=== PATIENT | female | born 1965 | race Caucasian/White ===

== ENCOUNTER 2020-10-25 10:06 | Observation (INO) | payer BC ==
[~2020-10-25] VITALS: Ht 154.9 cm; Wt 74.0 kg
[2020-10-25] VITALS (12 sets, daily range): BP systolic 107–149; BP diastolic 50–94; PULSE 49–65; TEMP 97.4–97.6
[2020-10-25] MEDS ORDERED: NORCO 325 MG-7.1 TAB PO (10:39)
[2020-10-25] MEDS ORDERED: SYNTHROID0.1 MG/TAB PO (10:39)
[2020-10-25] MEDS ORDERED: VITAMIN D (ERGOCALCI PO (10:39)
--- NOTE | 2020-10-25 10:55 | NUR ---
IV started by Eric Oleary SOCIAL WELFARE ADMINISTRATOR #20g right calf. Patient states that is the only place to start the IV.
--- NOTE | 2020-10-25 12:20 | NUR ---
Dr Allen into see patient at this time to go over results.
--- NOTE | 2020-10-25 12:45 | NUR ---
Dr Allen reports that patient can have clear liquids until two hours post-op (1602) and then advance as tolerated.
--- NOTE | 2020-10-25 13:30 | NUR ---
Patient given muffin at this time. Vitals stable.
--- NOTE | 2020-10-25 14:15 | NUR ---
Patient complains of severe right upper quadrant pain. Denies nausea/vomiting. Vitals stable. Dr Allen contacted and would like to continue monitoring patient.
--- NOTE | 2020-10-25 14:30 | NUR ---
Patient complaining of 10/10 right lateral upper abdominal pain. Patient does appear to be in pain. Vitals stable. Dr Allen contacted and order obtain for PRN pain medication.
--- NOTE | 2020-10-25 14:40 | NUR ---
Lab into see patient at this time.
[2020-10-25 15:03] LABS: ALBUMIN 4.2 gm/dL (3.5-5.0); BILIRUBIN,TOTAL 0.9 mg/dL (0.0-1.0); CALCIUM 8.5 mg/dL (8.4-10.2); CREATININE, serum 0.43 (0.52-1.25); POTASSIUM 3.9 mmol/L (3.4-5.0); TOTAL PROTEIN 7.6 gm/dL (6.4-8.2)
--- NOTE | 2020-10-25 15:20 | NUR ---
Dr Means contacted/updated with lab results. Patient asleep resting comfortably on chair.
--- NOTE | 2020-10-25 15:20 | NUR ---
Dr Allen contacted/updated with lab results. Patient asleep resting comfortably on chair.
--- NOTE | 2020-10-25 15:45 | NUR ---
Dr Allen contacted with lab result updates. Patient reports she doesn't feel confident in going home. Patient currently rates pain 2/10 in right upper quadrant abdomen.
--- NOTE | 2020-10-25 15:55 | NUR ---
labor gang supervisor reports patient will go to [id number].
--- NOTE | 2020-10-25 16:00 | NUR ---
Patient reports pain is starting to increase. Patient educated that she will be admitted to the floor shortly where the hospitalist navigation officer will see her and order PRN pain medications.
--- NOTE | 2020-10-25 16:20 | NUR ---
Patient report called to KP Tavares.
--- NOTE | 2020-10-25 16:30 | NUR ---
Patient transfered to [place] [id number] via wheelchair with IV intact and without any complications. Patient report and care given to KP Tavares.
--- NOTE | 2020-10-25 17:18 | NUR ---
PATIENT TO FLOOR, REPORT FROM HERMLEIGH. PATIENT C/O 9/10 PAIN IN MIDABDOMEN. PHYSICIAN NOTIFIED, ORDERS RECEIVED. FLUIDS INITIATED AND PAIN TREATED WITH CURRENT PAIN RATED AT 0/10. PATIENT ORIENTED TO ROOM AND CLEAR LIQUID DIET ORDERED. NO NEEDS OR C/O AT THIS TIME.
--- NOTE | 2020-10-25 17:40 | NUR ---
OBSERVED PT WALKING TO BATHROOM W/ IV POLE. PT STEADY ON HER FEET.
--- NOTE | 2020-10-25 18:32 | NUR ---
PATIENT RESTING W/O PAIN FOR SHORT TIME. SHE HAS EATEN CLEAR LIQUID DIET AND STATES SHE IS STARTING TO HAVE PAIN AGAIN RATING AT 3/10 - DECLINES PAIN INTERVENTION AT THIS TIME. NO OTHRE NEEDS OR C/O.
[2020-10-26 00:04] VITALS: BP 93/52; PULSE 57; TEMP 98.1
[2020-10-26 04:23] VITALS: BP 123/73; PULSE 50; TEMP 98.5
[2020-10-26 05:55] LABS: ALBUMIN 3.4 gm/dL (3.5-5.0); BILIRUBIN,TOTAL 0.9 mg/dL (0.0-1.0); CALCIUM 7.7 mg/dL (8.4-10.2); CREATININE, serum 0.42 (0.52-1.25); HEMOGLOBIN 12.3 g/dl (12.5-16.0); MAGNESIUM 1.8 mg/dL (1.6-2.3); MEAN CELL VOLUME 90 fl (80.0-100.0); MEAN CORPUSCULAR HEMOGLOBIN 32 pg (27.0-31.0); MEAN CORPUSCULAR HGB CONC 35 g/dl (33.0-37.0); PHOSPHOROUS 2.9 mg/dL (2.5-4.5); RED BLOOD COUNT 3.87 M/mm3 (4.10-5.30); REDCELL DISTRIBUTION WIDTH-CV 12.4 % (11.5-14.5); TOTAL PROTEIN 6.4 gm/dL (6.4-8.2)
[2020-10-26 06:01] LABS: HEMATOCRIT 34.7 % (37.0-47.0)
--- NOTE | 2020-10-26 06:24 | NUR ---
Resting quietly, patient ambulated to bathroom independently last night with steady gait, pain well controlled with Elliott 7.5, no further vomitting or nasuea complaints, requesting to eat this am. Updated on POC- verbalized understanding.
[2020-10-26 06:32] LABS: BAND 1 % (0-10); LYMPHOCYTE 82 % (20.0-51.0); NEUTROPHILS 15 % (42.0-75.2); PLATELET ESTIMATE DECREASED (NORMAL)
[2020-10-26 06:33] LABS: ANISOCYTOSIS 1+; POIKILOCYTOSIS 1+
--- NOTE | 2020-10-26 07:08 | NUR ---
PT UP TO SIDE OF BED, INDEPENDENT IN ROOM, C/O WAKING UP HOURLY IN NIGHT FOR BATHROOM OR LAB DRAW. PT REPORTS PAIN AT A 5/10 CURRENTLY AND DENIES NEED FOR PAIN MEDS AT THIS TIME. PT PLEASANT, ASSESSMENT PERFORMED, NO OTHER NEEDS.
[2020-10-26 07:46] VITALS: BP 112/58; PULSE 56; TEMP 98.3
[2020-10-26 12:10] VITALS: BP 128/71; PULSE 60; TEMP 98.2
--- NOTE | 2020-10-26 13:17 | NUR ---
Plan is to return home with support from Dtr Quyen Marie . Patient reports that she is indpendent and works constently. Patient indicated that her PCP is Marshall Finn. Patient prefers [facility] on [address] in [place]. Patient reports that she has transport home. Patient denies the use of any DME. Patient denies having any care concerns or use for skilled services. SW could not identify any additional concerns. Will follow for needs. No DPOA
--- NOTE | 2020-10-26 16:04 | NUR ---
PT ESCORTED OUT VIA WHEELCHAIR WITH BELONGINGS, DISCHARGE EDUCATION PROVIDED, IV REMOVED.
== END 2020-10-26 15:00 | disposition home or self-care (01) ==
LOC: SDCO → MEDICAL 16:51
PROVIDERS: Internal Medicine Gastroenterology; ADMIT Family Medicine
DX: K91.89 Other postprocedural complications and disorders of digestive system (principal); K31.5 Obstruction of duodenum; K83.8 Other specified diseases of biliary tract; K31.89 Other diseases of stomach and duodenum; R93.2 Abnormal findings on diagnostic imaging of liver and biliary tract; R94.5 Abnormal results of liver function studies; K85.90 Acute pancreatitis without necrosis or infection, unspecified; J45.909 Unspecified asthma, uncomplicated; E03.9 Hypothyroidism, unspecified; D64.9 Anemia, unspecified; G89.29 Other chronic pain; B18.2 Chronic viral hepatitis C; Z87.891 Personal history of nicotine dependence; Z20.822 Contact with and (suspected) exposure to COVID-19; Z83.3 Family history of diabetes mellitus; Z79.890 Hormone replacement therapy
CPT/HCPCS: 99239; C1769; C9113; G0378; J1170; J2704; J3010; J7030; Q9967

== ENCOUNTER 2020-10-26 21:36 | Inpatient (IN) | payer BC ==
[~2020-10-26 21:36] MED LIST: NORCO 325 MG-7.1 TAB PO; SYNTHROID0.1 MG/TAB PO; VITAMIN D (ERGOCALCI PO
[2020-10-27] VITALS (7 sets, daily range): BP systolic 99–126; BP diastolic 55–68; PULSE 57–82; TEMP 98–98.9
--- NOTE | 2020-10-27 00:36 | NUR ---
aWAKE,alert, oriented x 3, verbal with clear speech, c/o abdominal pain, medicated per MAR, IV to R Andree melendrez here to see patient
[2020-10-27 06:37] LABS: HEMOGLOBIN 11.2 g/dl (12.5-16.0); MEAN CELL VOLUME 92 fl (80.0-100.0); MEAN CORPUSCULAR HEMOGLOBIN 31 pg (27.0-31.0); MEAN CORPUSCULAR HGB CONC 34 g/dl (33.0-37.0); MEAN PLATELET VOLUME 12.9 fl (7.4-10.4); PLATELET COUNT 122 K/mm3 (130-400); RED BLOOD COUNT 3.59 M/mm3 (4.10-5.30); REDCELL DISTRIBUTION WIDTH-CV 12.6 % (11.5-14.5)
[2020-10-27 06:39] LABS: ALBUMIN 3.2 gm/dL (3.5-5.0); BILIRUBIN,TOTAL 2.2 mg/dL (0.0-1.0); CALCIUM 7.3 mg/dL (8.4-10.2); CREATININE, serum 0.42 (0.52-1.25); TOTAL PROTEIN 6.2 gm/dL (6.4-8.2)
--- NOTE | 2020-10-27 08:15 | NUR ---
PT GRIMACING, ABD GUARDING PRESENT, REPORTING 9/10 ABD PAIN, DILAUDID GIVEN, TOO EARLY FOR NORCO, PT REPORTS WANTING NORCO AFTER A SHOWER AND AFTER DILAUDID TAKES EFFECT, PT DA BRINGING SUPPLIES FOR HER FROM HOME, OTHER MEDICATIONS GIVEN AND SIDE EFFECTS LISTED, PT DENIES NAUSEA, PT NPO AT THIS TIME, IV FLUIDS INFUSING, NO OTHER NEEDS AT THIS TIME.
[2020-10-27 08:33] LABS: BAND 1 % (0-10); EOSINOPHIL 2 % (0-4); LYMPHOCYTE 34 % (20.0-51.0); NEUTROPHILS 57 % (42.0-75.2)
[2020-10-27 08:40] LABS: PLATELET ESTIMATE NORMAL (NORMAL)
--- NOTE | 2020-10-27 12:11 | NUR ---
SW met with patient to complete intake. Patient states that she lives alone in [place], [place]. Patient states that her point of contact is her daughter Quyen [phone]. Completed documenation during intake for daughter to also be appointed as DPOA-HC. Documenation completed, reviewed, signed by patient and witnessed by nurse. Documenation was copied for patient and original placed in chart. Patient states that she does not utilize DME nor needs any assistance with ADL's. Patient provides that her PCP is Dr. Trivedi and pharmacy is [facility], and is able to afford her medications. Patient states her plan is to return back to her home [place] [address] and has no problems with doing so. Patient also states that she does not utilize any home health services at this time. SW will continue to follow.
--- NOTE | 2020-10-27 12:30 | NUR ---
PT C/O BLOOD IN STOOL AND ABD PAIN. STOOL VISUALIZED WITH BRIGHT RED BLOOD, PT DENIES DIZZINESS, VITALS TAKEN AND STABLE. DILAUDID GIVEN, JOSE NOTIFIED AND SAID TO DEFER TO JOSE RAFAEL. JOSE RAFAEL CALLED AND REPEAT H&H SCHEDULED FOR 1400. CONTINUE TO MONITOR BLOOD IN STOOL.
[2020-10-27 14:08] LABS: HEMATOCRIT 31.4 % (37.0-47.0); HEMOGLOBIN 10.8 g/dl (12.5-16.0)
--- NOTE | 2020-10-27 17:26 | NUR ---
PT HAD BLOODY STOOL EARLY IN AFTERNOON, NONE SINCE THEN, PT EDUCATED TO NOTIFY STAFF SO WE CAN VISUALIZE SPECIMEN. HGB STABLE, PT AOX4, REPORTS PAIN 4/10 AT THIS TIME, WANTS TO WAIT FOR MORE PAIN MEDS
--- NOTE | 2020-10-27 20:31 | NUR ---
Patient requesting something to eat, call placed to Andree Yin- NON: clear liquid diet- updated patient on plan of care.
--- NOTE | 2020-10-27 23:21 | NUR ---
Chuy teaching re: clear liquid diet, patient drinking chicken broth and water and jello, no distress noted, will continue to monitor.
[2020-10-28 04:07] VITALS: BP 131/67; PULSE 72; TEMP 99
[2020-10-28 06:50] LABS: BASO % 0.3 % (0.0-2.0); EOS # 0.1 (0.0-0.7); EOS % 2.3 % (0-4.0); GRAN # 3.9 (1.4-6.5); GRAN % 64.5 % (42.2-75.2); HEMOGLOBIN 11.2 g/dl (12.5-16.0); LYMPH # 1.6 (1.2-3.4); LYMPH % 26.1 % (20.0-51.0); MEAN CELL VOLUME 95 fl (80.0-100.0); MEAN CORPUSCULAR HEMOGLOBIN 32 pg (27.0-31.0); MEAN CORPUSCULAR HGB CONC 34 g/dl (33.0-37.0); MEAN PLATELET VOLUME 11.7 fl (7.4-10.4); MONO # 0.4 (0.1-0.6); MONO % 6.6 % (1.7-9.3); PLATELET COUNT 181 K/mm3 (130-400); RED BLOOD COUNT 3.53 M/mm3 (4.10-5.30); REDCELL DISTRIBUTION WIDTH-CV 12.8 % (11.5-14.5)
[2020-10-28 07:10] LABS: HEMATOCRIT 33.4 % (37.0-47.0)
[2020-10-28 08:00] LABS: ALBUMIN 3.4 gm/dL (3.5-5.0); BILIRUBIN,TOTAL 1.2 mg/dL (0.0-1.0); CALCIUM 7.6 mg/dL (8.4-10.2); CREATININE, serum 0.41 (0.52-1.25); POTASSIUM 3.6 mmol/L (3.4-5.0); TOTAL PROTEIN 6.4 gm/dL (6.4-8.2)
[2020-10-28 08:08] VITALS: BP 123/70; PULSE 66; TEMP 98.4
--- NOTE | 2020-10-28 08:21 | NUR ---
Patient asks for food, NPO order currently. Several drinks noted at bedside, removed from room. Patient agitated, states "They let me drink all I wanted last night". Educated patient on NPO status, will update Dr that patient requests diet order.
--- NOTE | 2020-10-28 10:28 | NUR ---
Patient alert and oriented, answers questions appropriately. See assessment. Abdomen soft, non distended, tender. Bowel sounds active x4 quads. +Flatus. Patient has flat affect, several complaints. Pain 9/10, no other c/o at this time.
[2020-10-28 11:40] VITALS: BP 127/78; PULSE 76; TEMP 98.1
--- NOTE | 2020-10-28 12:35 | NUR ---
First visit from the conductor/brakeman. No needs right now.
--- NOTE | 2020-10-28 15:30 | NUR ---
visited at length with patient regarding PICC placement. explained risks and benefits of PICC placement. patient doesn't want to sign a consent form for vascular access. requests to keep sticking her in her legs for IV site. explained more risks with PIV in leg when compared to PICC placement. still not wanting to sign a consent form. explained minimal risks of complications with PICC placement. still not willing to sign consent form. primary care nurse at bedside and reports request of no PICC and wants IV in leg.
[2020-10-28 16:36] VITALS: BP 127/72; PULSE 71; TEMP 98.5
--- NOTE | 2020-10-28 16:45 | NUR ---
Patient c/o rash to BLE, low back. Diffuse rash noted to thighs and low back. Dr Guzman notified.
--- NOTE | 2020-10-28 17:18 | NUR ---
Patient refused lab.
--- NOTE | 2020-10-28 18:23 | NUR ---
Patient refuses IV start to BUE, states last time someone tried, they "hit a nerve". Educated patient on need for IV and protocol is to start in upper extremeties vs lower, refuses.
[2020-10-28 19:48] VITALS: BP 109/56; PULSE 85; TEMP 99.9
--- NOTE | 2020-10-28 23:02 | NUR ---
Patient is awake, alert, oriented x 4, able to make all needs known, patient teaching re: bloody stools, labs, testing, PICC lines, IJ lines, PIVs, treatment plan, pain managment- verbalizes understanding, Andree Yin has seen patient and is aware of bloody stools, inablility to start PIV, inability of lab to get lab work, this nurse attempted x 2 to obtain PIV line, Charge nurse attempted x 3 to obtain PIV without sucess, patient tolerated well, Plan to get PICC tomorrow- patient agreeable, see new orders re: pain medications, paitent updated on plan of care by Andree Yin PA. Will continue to monitor.
[2020-10-29 00:18] VITALS: BP 96/48; PULSE 64; TEMP 98.1
--- NOTE | 2020-10-29 01:37 | NUR ---
Call placed to Andree Yin re: blood pressure trending downward, most recent , no further bloody bowel movements at this time, sleeping but wakes easily, call [facility]encia w/i reach, continuing ot monitor per Andree.
[2020-10-29 04:04] VITALS: BP 107/59; PULSE 63; TEMP 98.1
--- NOTE | 2020-10-29 06:15 | NUR ---
Chuy medicated for pain with good effect, B/P 107/59 this am, awake and alert, updated on plan of care- verbalized understanding. will continue to monitor.
[2020-10-29 07:24] VITALS: BP 119/78; PULSE 62; TEMP 98.1
--- NOTE | 2020-10-29 07:29 | NUR ---
PT PLEASANT, A0X4, ANXIOUS ABOUT PICC PLACEMENT TODAY, REPORTS PAIN 7/10 IN ABD, REPORTS HAVING 4 BLOODY STOOLS TODAY, ATTEMPTED TO CALL [facility] FOR PICC PLACEMENT BUT SHE IS NOT HERE YET.
[2020-10-29 09:33] LABS: BASO % 0.2 % (0.0-2.0); EOS # 0.2 (0.0-0.7); EOS % 4.7 % (0-4.0); GRAN # 2.6 (1.4-6.5); GRAN % 56.4 % (42.2-75.2); HEMOGLOBIN 10.1 g/dl (12.5-16.0); LYMPH # 1.4 (1.2-3.4); LYMPH % 30.8 % (20.0-51.0); MEAN CELL VOLUME 92 fl (80.0-100.0); MEAN CORPUSCULAR HEMOGLOBIN 32 pg (27.0-31.0); MEAN CORPUSCULAR HGB CONC 34 g/dl (33.0-37.0); MEAN PLATELET VOLUME 11.4 fl (7.4-10.4); MONO # 0.4 (0.1-0.6); MONO % 7.7 % (1.7-9.3); PLATELET COUNT 185 K/mm3 (130-400); RED BLOOD COUNT 3.21 M/mm3 (4.10-5.30); REDCELL DISTRIBUTION WIDTH-CV 12.6 % (11.5-14.5)
[2020-10-29 09:40] LABS: HEMATOCRIT 29.6 % (37.0-47.0)
[2020-10-29 09:41] LABS: ALBUMIN 3.2 gm/dL (3.5-5.0); BILIRUBIN,TOTAL 0.7 mg/dL (0.0-1.0); CALCIUM 7.9 mg/dL (8.4-10.2); CREATININE, serum 0.45 (0.52-1.25); POTASSIUM 3.2 mmol/L (3.4-5.0); TOTAL PROTEIN 5.9 gm/dL (6.4-8.2)
[2020-10-29 11:25] VITALS: BP 106/61; PULSE 60; TEMP 98.4
[2020-10-29 15:37] VITALS: BP 120/57; PULSE 66; TEMP 98
--- NOTE | 2020-10-29 18:14 | NUR ---
PT DRINKING BOWEL PREP, EDUCATED TO DRINK UNTIL STOOL IS CLEAR, PT HAS CLD, PAIN MEDS GIVEN X3 TODAY, PT EDUCATED ON PROCEDURE, NO OTHER NEEDS.
[2020-10-29 19:04] LABS: HEMATOCRIT 29.1 % (37.0-47.0); HEMOGLOBIN 9.9 g/dl (12.5-16.0)
[2020-10-29 19:50] VITALS: BP 122/92; PULSE 58; TEMP 98.1
--- NOTE | 2020-10-29 20:00 | NUR ---
Initial shift assessment done- alert/oriented, Golightely bowel prep at bedside-talked with patient about importance of drinking this prep that the test can be done-- did drink one glass full so far--did have one black/bloody soft formed stool. Patient states understanding but says thats too much liquid for one person to have to drink-encouragement given. IV fluids of NS at 75cc/hr to right upper arm PICC.
--- NOTE | 2020-10-29 21:40 | NUR ---
Pt not drinking the bowel prep-now states she is nauseated, upset that the bowel prep was not started this morning so that she could have all day to drink the prep-- will give Zofran at this time,, instructed to continue to to drink the golightely
[2020-10-30] VITALS (12 sets, daily range): BP systolic 94–132; BP diastolic 44–91; PULSE 54–80; TEMP 97.7–98.6
--- NOTE | 2020-10-30 05:00 | NUR ---
Awake now- would not drink anymore [place]rentley after around [place]-- now drinking some more--has had about 1/2 of the total amount-- stool liquid brown,, states will drink a few more glasses in the next hour to see if she is clear--- coloscopy not till 1230 today.
[2020-10-30 07:36] LABS: BASO % 0.2 % (0.0-2.0); EOS # 0.3 (0.0-0.7); EOS % 5.7 % (0-4.0); GRAN # 2.6 (1.4-6.5); LYMPH # 1.6 (1.2-3.4); LYMPH % 32.1 % (20.0-51.0); MEAN CELL VOLUME 93 fl (80.0-100.0); MEAN CORPUSCULAR HGB CONC 34 g/dl (33.0-37.0); MEAN PLATELET VOLUME 11.3 fl (7.4-10.4); MONO # 0.4 (0.1-0.6); MONO % 7.8 % (1.7-9.3); PLATELET COUNT 193 K/mm3 (130-400); RED BLOOD COUNT 2.98 M/mm3 (4.10-5.30); REDCELL DISTRIBUTION WIDTH-CV 12.9 % (11.5-14.5)
--- NOTE | 2020-10-30 07:45 | NUR ---
Assessment completed. Pt sitting up in bed. PICC line Rt upper arm no redness or swelling. CMS WNL. Pt complains of pain 04/01 notified nurse to provide pain management. Call light within reach.
[2020-10-30 07:52] LABS: CALCIUM 7.1 mg/dL (8.4-10.2); CREATININE, serum 0.4 (0.52-1.25); MAGNESIUM 1.6 mg/dL (1.6-2.3); POTASSIUM 3.6 mmol/L (3.4-5.0)
[2020-10-30 08:00] LABS: HEMATOCRIT 27.7 % (37.0-47.0); HEMOGLOBIN 9.3 g/dl (12.5-16.0); MEAN CORPUSCULAR HEMOGLOBIN 31 pg (27.0-31.0)
--- NOTE | 2020-10-30 12:38 | NUR ---
PT TAKEN DOWN FOR PROCEDURE
--- NOTE | 2020-10-30 13:31 | NUR ---
PT RETURNED FROM PROCEDURE, FLUIDS INFUSING, PT ALERT ADN ORIENTED ON ROOM AIR, HOOKED UP TO VITALS CART.
--- NOTE | 2020-10-30 13:52 | NUR ---
GI has been consulted for the patient.
--- NOTE | 2020-10-30 16:52 | NUR ---
pt arrived in room, oriented to room and call light and phone. assessment performed, pt reports being sob, pt standby assist in bathroom. pt changing into gown.
--- NOTE | 2020-10-30 18:00 | NUR ---
PT PLEASANT, AOX4, EGD COLON PERFORMED TODAY, PT INDEPENDENT IN ORDERING FOOD, NO OTHER NEEDS.
[2020-10-31 00:05] VITALS: BP 107/64; PULSE 57; TEMP 98.2
--- NOTE | 2020-10-31 01:37 | NUR ---
0- ASSESSMENT AND VITALS COMPLETE. PT RATING PAIN IN RT LOWER ABD 7/10 WITH BURN. CONT TO HAVE LOOSE STOOLS AFTER COLONSCOPY THIS AM ALSO FEELS BLOATED. PASSING GAS. PICC TO RT UPPER ARM NS RUNNING. PLAN OF CARE DISCUSSED. NEEDS MET. 2100- NORCO GAVE FOR PAIN. LIGHTS DOWN. RESTING.
[2020-10-31 04:01] VITALS: BP 115/71; PULSE 55; TEMP 98.2
--- NOTE | 2020-10-31 05:42 | NUR ---
RESTED THROUGH THE NIGHT WO INCIDENT. NEEDS MET.
[2020-10-31 06:55] LABS: BASO % 0.2 % (0.0-2.0); EOS # 0.4 (0.0-0.7); EOS % 6.6 % (0-4.0); GRAN # 3.2 (1.4-6.5); GRAN % 53.4 % (42.2-75.2); HEMOGLOBIN 10.3 g/dl (12.5-16.0); LYMPH % 32.7 % (20.0-51.0); MEAN CELL VOLUME 95 fl (80.0-100.0); MEAN CORPUSCULAR HEMOGLOBIN 32 pg (27.0-31.0); MEAN CORPUSCULAR HGB CONC 33 g/dl (33.0-37.0); MEAN PLATELET VOLUME 12.2 fl (7.4-10.4); MONO # 0.4 (0.1-0.6); MONO % 6.8 % (1.7-9.3); PLATELET COUNT 209 K/mm3 (130-400); RED BLOOD COUNT 3.26 M/mm3 (4.10-5.30)
[2020-10-31 07:01] LABS: CALCIUM 8.5 mg/dL (8.4-10.2); CREATININE, serum 0.44 (0.52-1.25); POTASSIUM 4.2 mmol/L (3.4-5.0)
[2020-10-31 08:00] VITALS: BP 118/66; PULSE 57; TEMP 97.9
[2020-10-31 08:34] LABS: ALBUMIN 3.3 gm/dL (3.5-5.0); BILIRUBIN,TOTAL 0.4 mg/dL (0.0-1.0); TOTAL PROTEIN 6.1 gm/dL (6.4-8.2)
[2020-10-31] MEDS ORDERED: LEVBID0.375 MG PO (09:24)
[2020-10-31] MEDS ORDERED: COLACE 100100 MG/CAP PO (09:26)
--- NOTE | 2020-10-31 10:30 | NUR ---
Discharge teaching discussed w/pt and all questions answered. Monie SWARTZ removed PICC. Pt instructed to lie flat in bed for 30 minutes. Pt reports daughter will be here to pickle pumper around 11:30. Continuing to monitor.
[2020-10-31 11:01] VITALS: BP 111/65; PULSE 67; TEMP 98
--- NOTE | 2020-10-31 12:08 | NUR ---
Pt escorted out, accompanied by daughter at this time. All belongings in tow.
== END 2020-10-31 12:08 | disposition home or self-care (01) | DRG 393 ==
LOC: MEDICAL 21:36
PROVIDERS: Family Medicine; Internal Medicine Gastroenterology; Orthopaedic Surgery; Physician Assistant; Student in an Organized Health Care Education/Training Program; ADMIT Hospitalist
PROC: 02HV33Z Insertion of Infusion Device into Superior Vena Cava, Percutaneous Approach (ICD-10-PCS; principal; 2020-10-29)
PROC: 0DBN8ZX Excision of Sigmoid Colon, Via Natural or Artificial Opening Endoscopic, Diagnostic (ICD-10-PCS; 2020-10-30)
PROC: 0DJ08ZZ Inspection of Upper Intestinal Tract, Via Natural or Artificial Opening Endoscopic (ICD-10-PCS; 2020-10-30 12:30)
DX: K91.89 Other postprocedural complications and disorders of digestive system (principal); K85.90 Acute pancreatitis without necrosis or infection, unspecified; K83.4 Spasm of sphincter of Oddi; K60.2 Anal fissure, unspecified; K64.8 Other hemorrhoids; K64.1 Second degree hemorrhoids; B18.2 Chronic viral hepatitis C; G89.29 Other chronic pain; J45.909 Unspecified asthma, uncomplicated; D12.5 Benign neoplasm of sigmoid colon; D69.6 Thrombocytopenia, unspecified; E87.6 Hypokalemia; E03.9 Hypothyroidism, unspecified; Z87.891 Personal history of nicotine dependence; Y84.8 Other medical procedures as the cause of abnormal reaction of the patient, or of later complication, without mention of misadventure at the time of the procedure
CPT/HCPCS: 99223-AI; 99232-AI; 99233-AI; 99239; C1751; G0378; J1170; J2405; J2704; J7030